=== PATIENT | female | born 1935 | race Caucasian/White ===

== ENCOUNTER → 2022-12-06 09:29 | Outpatient (CLI) | payer MEDICARE, SELFPAY ==
--- NOTE | ~2022-12-06 | US_ITS ---
EXAMINATION: US thyroid DATE: 12/06/2022 09:41 INDICATION: Hypothyroidism. TECHNIQUE: Multiple ultrasound images of the thyroid were obtained. COMPARISON: None. FINDINGS: The right thyroid lobe measures 2.6 x 1.7 x 1.3 cm. The left thyroid lobe measures 3.0 x 1.0 x 1.1 c m. The thyroid demonstrates heterogeneous echogenicity. No discrete nodule. Vascularity is normal. IMPRESSION: 1. Thyroid heterogeneity, which may be seen with chronic lymphocytic (Lamar) thyroiditis. Reviewed, dictated and finalized at location A. IMPRESSION: 1. Thyroid heterogeneity, which may be seen with chronic lymphocytic (Lamar ) thyroiditis.
== END ==
PROVIDERS: PCP Family Medicine; Visit Provider Family Medicine
DX: E03.9 Hypothyroidism, unspecified (principal)
CPT/HCPCS: 76536

== ENCOUNTER → 2023-02-03 09:19 | Outpatient (CLI) | payer MEDICARE, SELFPAY ==
--- NOTE | ~2023-02-03 | CT_ITS ---
CT Scan of the Chest without Contrast: Clinical Indication: Interstitial lung disease Technique: Contiguous sections were acquired throughout the chest without intravenous contrast. Dose reduction technique was used on this scan by utilizing automated exposure control and iterative recon struction technique. The dose-length product (DLP) was 258.11 mGy-cm. Findings: There is no evidence of any significant mediastinal, hilar or axillary lymphadenopathy. Coronary lydia ry calcifications are present. There is no evidence of pleural or pericardial effusion. There is probable minimal subpleural reticulation a few minimal scattered groundglass opacities. Images through the upper abdomen reveal no abnormalities. Chronic compression fracture T8 noted. Impression: Possible minimal/early chronic interstitial change, as noted above. Chronic T8 compression fracture. Reviewed, dictated and finalized at location . CAL STAFF COORDINATOR Impression: Possible minimal/early chronic interstitial change, as noted above. Chronic T8 compression fracture.
== END ==
PROVIDERS: PCP Family Medicine
DX: R06.09 Other forms of dyspnea (principal); U09.9 Post COVID-19 condition, unspecified; R06.89 Other abnormalities of breathing
CPT/HCPCS: 71250

== ENCOUNTER 2024-04-23 12:51 | Outpatient (CLI) | payer MEDICARE, SELFPAY | END 2024-04-23 12:52 | disposition home or self-care (01) | PROVIDERS: PCP Family Medicine; Visit Provider Family Medicine | DX: M25.452 Effusion, left hip (principal) | CPT/HCPCS: 76882 ==

== ENCOUNTER 2024-11-04 10:00 | Outpatient (RCR) | payer MEDICARE, SELFPAY ==
--- NOTE | 2024-09-24 14:41 | OPREHPOC ---
Outpatient Therapy Plan of Care This is a Multidisciplinary Plan of Care that may contain components documented by all disciplines (PT, OT, and ST.) PT Problem 1 PT Problem #1 Knowledge Deficit PT Goal 1 Goal / Goal Update 1. Patient will perform independent HEP 2. Patient will verbalize urge suppression strategies Target Visit 2 PT Problem 2 PT Problem #2 Impaired Strength PT Goal 1 Goal / Goal Update 1. Improve pelvic floor strength to 4/5 to reduce incontinence 2. Improve pelvic floor endurance to 10 seconds to reduce incontinence Target Visit 5 PT Problem 3 PT Problem #3 Impaired Functional ADLs PT Goal 1 Goal / Goal Update 1. Patient will report incontinence no more than 1 time per day 2. Patient will hold urge to void at least 10 minutes Target Visit 5
--- NOTE | 2024-09-24 14:41 | PTOPEVAL1 ---
Assessment and note entered by Dyana Thomas DPT Evaluation Information Assessment Status Evaluation Diagnosis m62.89 ICD-10 Condition Codes (PT) Weakness R53.1,Urge incontinence N39.41,Mixed incontinence N39.46 Subjective Information Pt states she recently stopped taking medicine for OAB due to feeling too dry. Reports since stopping she reports a lot of urinary urgency and urge incontinence. Is getting significant volume of incontinence 5 times a day and wearing 5 pads a day. Usually wakes up 2 times at night to void. Cannot hold urge at all during the day. Urinary issues started about a year ago and have been worsening. BM 3-4 times a week and takes a stool softener. Pt has been and delivered 4 times vaginally. Reports 1 baby was 14 pounds. Pt lives in [place] and reports she is starting to stay in her room more and not going to exercise class as much. Patient goal: regulate my urine better Returns to [place] in a few months. Hysterectomy in 1981, history of breast cancer with surgical removal. Patient uses a cane at home and walker or scooter in the community. Reported Pain Level Pain Score 0: Self Report Assessment PT Clinical Summary The patient is presenting to skilled therapy with a history of worsening mixed urinary incontinence and urgency. She demonstrates decreased pelvic floor strength and endurance, in addition to decreased hip and abdominal strength. These impairments are contributing to her incontinence multiple times a day and her inability to hold urge to void. She will highly benefit from therapy to reduce incontinence and restore full function, in addition to educating on urge suppression strategies. Plan of Care Interventions Manual Therapy,Neuro Re-education,Patient/ Caregiver Education,Therapeutic Activities, Therapeutic Exercise PT Services Indicated Yes Treatment Frequency and 1 time a week for 5 visits Duration These treatments will address the objective and functional deficits as defined above. The patient will be advanced safely and appropriately in order for the patient to progress towards his/her prior level of function. Additional exercises will be introduced and as well as a comprehensive home exercise program upon discharge, if needed, ?to ensure carryover of functional gains achieved in the clinic. This treatment plan has been reviewed and agreement upon by the patient.
--- NOTE | 2024-10-11 13:16 | PCPTNOTE ---
Patient cancelled appointment 10/11/24, wanting to adjust medicines before coming back in.
--- NOTE | 2024-10-18 11:38 | PCPTNOTE ---
Patient did not show up for appointment 10/18/24. Called but voicemail not set up.
--- NOTE | 2024-10-28 10:34 | PCPTNOTE ---
Patient did not show up to appointment 10/28/24.
--- NOTE | 2024-11-15 12:55 | PCPTNOTE ---
Patient called to cancel appointment 11/15/24 due to falling and hurting her shoulder.
--- NOTE | 2024-11-22 11:19 | PCPTNOTE ---
Patient rescheduled appointment 11/22/24 to next week due to lack of transportation.
--- NOTE | 2024-11-26 14:52 | PCPTNOTE ---
Therapist called patient 11/26/24 regarding her wanting to cancel appt next week- patient was educated she could call day of to see if she could get in for an appointment otherwise her case will be discharged by end of the month.
--- NOTE | 2024-12-20 12:51 | PTOPDC ---
Assessment and note entered by Dyana Thomas DPT Evaluation Information Assessment Status Discharge - Pt Not Present Diagnosis m62.89 ICD-10 Condition Codes (PT) Weakness R53.1,Urge incontinence N39.41,Mixed incontinence N39.46 Subjective Information - Assessment PT Clinical Summary Patient has not attended therapy since 11/04/24. Her case will be discharged this date. Plan of Care PT Services Indicated No
== END 2024-12-21 08:19 | disposition home or self-care (01) ==
LOC: ANHGOSHPT 10:00
PROVIDERS: PCP Family Medicine; Visit Provider Family Medicine
DX: N39.46 Mixed incontinence (principal); M62.89 Other specified disorders of muscle
CPT/HCPCS: 97110; 97112; 97161; 97530